=== PATIENT | male | born 1960 | race Asian ===

== ENCOUNTER 2020-02-07 19:51 | Emergency (ER) | payer BC ==
[~2020-02-07] VITALS: Ht 170.2 cm; Wt 70.5 kg
[2020-02-07 20:22] LABS: CLARITY,URINE CLEAR (Clear); COLOR,URINE YELLOW (Yellow); GLUCOSE, URINE 100 mg/dl (Neg); KETONES,URINE NEGATIVE (Neg); LEUKOCYTE ESTERASE ,URINE NEGATIVE (Neg); NITRITES, URINE NEGATIVE (Neg); OCCULT BLOOD,URINE NEGATIVE (Neg); PH,URINE 6.5 (4.8-8.0); PROTEIN,URINE 30 mg/dl (Neg)
[2020-02-07 20:28] LABS: UA COLLECTION TYPE CLN CATCH MIDSTREAM
[2020-02-07 20:29] LABS: BACTERIA,URINE NONE SEEN /HPF (Neg); RBC,URINE NONE SEEN /HPF (0-2); SQUAMOUS EPITHELIAL CELL,UR FEW /LPF (FEW); WBC,URINE 0-4 /HPF (0-4)
[2020-02-07 20:30] LABS: BASOPHILS % (AUTO) 0.5 % (0-1); EOSINOPHILS # (AUTO) 0.3 X10'3 (0-0.9); EOSINOPHILS % (AUTO) 4.1 % (0-6); HEMATOCRIT 34.6 % (42.0-52.0); HEMOGLOBIN 11.4 g/dl (14.0-17.9); LYMPHOCYTES # (AUTO) 1.3 X10'3 (1.1-4.8); MEAN CORPUSCULAR HEMOGLOBIN 30.4 PG (27.0-31.0); MEAN CORPUSCULAR HGB CONC 33.1 g/dL (33.0-36.5); MEAN PLATELET VOLUME 6.8 FL (7.4-10.4); MONOCYTES # (AUTO) 0.6 X10'3 (0-0.9); MONOCYTES % (AUTO) 7.5 % (2-12); NEUTROPHILS # (AUTO) 5.6 X10'3 (1.8-7.7); NEUTROPHILS % (AUTO) 71.9 % (42-75); PLATELET COUNT 281 X10'3 (140-440); RED BLOOD COUNT 3.76 X10'6 (4.70-6.10); RED CELL DISTRIBUTION WIDTH 13.3 % (11.5-14.5); WHITE BLOOD COUNT 7.9 X10'3 (4.5-11.0)
[2020-02-07 20:53] LABS: ALANINE AMINOTRANSFERASE 22 U/L (12-78); ALBUMIN 3.7 G/DL (3.4-5.0); ALBUMIN/GLOBULIN RATIO 1.1 (1.1-1.5); ALKALINE PHOSPHATASE 51 IU/L (46-116); ANION GAP 7 (8-16); ASPARTATE AMINO TRANSFERASE 15 U/L (10-37); BILIRUBIN,TOTAL 0.3 MG/DL (0.1-1.0); BLOOD UREA NITROGEN 14 MG/DL (7-18); BUN/CREATININE RATIO 12.1 (5.4-32.0); CALCIUM 8.6 MG/DL (8.5-10.1); CHLORIDE 107 MMOL/L (99-107); CREATININE 1.16 MG/DL (0.60-1.10); GLUCOSE 119 MG/DL (70-104); LIPASE 85 U/L (73-393); POTASSIUM 3.7 MMOL/L (3.5-5.1); SODIUM 143 MMOL/L (135-145); TOTAL CARBON DIOXIDE 29.5 MMOL/L (24-32); TOTAL PROTEIN 7.1 G/DL (6.4-8.2); eGFR 64 ML/MIN
[2020-02-07] MEDS ORDERED: POLY17PO10 PO (21:16)
[2020-02-07] MEDS ORDERED: DOCU100C40 PO (21:19)
[2020-02-07 21:56] VITALS: BP 139/81
== END 2020-02-07 21:58 | disposition home or self-care (01) ==
LOC: ER 19:52
DX: K59.00 Constipation, unspecified (principal); R10.32 Left lower quadrant pain; M54.9 Dorsalgia, unspecified; R30.9 Painful micturition, unspecified; E11.9 Type 2 diabetes mellitus without complications; Z79.899 Other long term (current) drug therapy
CPT/HCPCS: 36415; 74176; 80053; 81001; 83690; 85025; 99284

== ENCOUNTER 2020-03-18 10:30 | Inpatient (IN) | payer BC ==
[2020-03-12 11:30] LABS: BASOPHILS # (AUTO) 0.1 X10'3 (0-0.2); BASOPHILS % (AUTO) 0.9 % (0-1); EOSINOPHILS # (AUTO) 0.2 X10'3 (0-0.9); EOSINOPHILS % (AUTO) 2.9 % (0-6); LYMPHOCYTES # (AUTO) 1.4 X10'3 (1.1-4.8); LYMPHOCYTES % (AUTO) 23.9 % (21-51); MEAN CORPUSCULAR HEMOGLOBIN 29.7 PG (27.0-31.0); MEAN CORPUSCULAR HGB CONC 32.7 g/dL (33.0-36.5); MEAN CORPUSCULAR VOLUME 90.8 FL (78-98); MEAN PLATELET VOLUME 7.1 FL (7.4-10.4); MONOCYTES # (AUTO) 0.5 X10'3 (0-0.9); MONOCYTES % (AUTO) 8.4 % (2-12); NEUTROPHILS # (AUTO) 3.7 X10'3 (1.8-7.7); NEUTROPHILS % (AUTO) 63.9 % (42-75); PRE OP HEMATOCRIT 35.4 % (42.0-52.0); PRE OP HEMOGLOBIN 11.6 g/dL (14.0-17.9); PRE OP PLATELET COUNT 300 X10'3 (140-440); RED BLOOD COUNT 3.89 X10'6 (4.70-6.10); RED CELL DISTRIBUTION WIDTH 13.3 % (11.5-14.5)
[2020-03-12 11:41] LABS: PRE OP INR 0.9 INR; PRE OP PROTIME 9.8 SECONDS (9.0-12.0)
[2020-03-12 11:43] LABS: ALBUMIN 3.6 G/DL (3.4-5.0); ALBUMIN/GLOBULIN RATIO 0.9 (1.1-1.5); ALKALINE PHOSPHATASE 50 IU/L (46-116); BLOOD UREA NITROGEN 18 MG/DL (7-18); BUN/CREATININE RATIO 17.6 (5.4-32.0); CALCIUM 8.4 MG/DL (8.5-10.1); CHLORIDE 107 MMOL/L (99-107); CREATININE 1.02 MG/DL (0.60-1.10); PRE OP ALT 21 U/L (30-65); PRE OP ANION GAP 5 (8-16); PRE OP AST 14 U/L (10-37); PRE OP BILIRUB, TOTAL 0.3 MG/DL (0.0-1.0); PRE OP GLUCOSE 142 MG/DL (70-104); PRE OP POTASSIUM 3.7 MMOL/L (3.4-5.1); PRE OP SODIUM 142 MMOL/L (135-145); TOTAL PROTEIN 7.4 G/DL (6.4-8.2); eGFR 74 ML/MIN
[2020-03-12 11:45] LABS: HEMOGLOBIN A1C 6.4 % (4.5-6.2)
[2020-03-18] VITALS (17 sets, daily range): BP systolic 114–155; BP diastolic 72–91
[~2020-03-18] VITALS: Ht 170.2 cm; Wt 68.0 kg
[~2020-03-18 10:30] MED LIST: AMLO10TA13 PO; ASPI-612 PO; LISI40TA4 PO; MAGN400C PO; METF-438 PO; MULT-227 PO; OMEG-133 PO; PIOG15TA70 PO; POLY17PO10 PO; SIMV10TA98 PO; cefoxitin sod inj 2,000 MG in normal saline 100ml IV soln 100 ML IV ONE; cefoxitin sod inj 2,000 MG in normal saline 100ml IV soln 100 ML IV SCH; famotidine 20mg tablet PO ONE; iohexol 300mg/ml 100ml inj. ONE
[2020-03-18] MEDS: ringers solution, lacted 1,000 ML IV SCH ×2 (11:33→21:34)
[2020-03-18] MEDS ORDERED: ringers solution, lacted 1,000 ML IV SCH (12:01)
[2020-03-18] MEDS ORDERED: morphine 2 MG/ML inj. syringe IV PRN (12:05)
[2020-03-18] MEDS ORDERED: ondansetron/PF 4mg/2ml inj IV PRN (12:05)
[2020-03-18] MEDS ORDERED: proCHLORperazine 10 MG/2 ml inj IV PRN (12:05)
[2020-03-18] MEDS ORDERED: morphine 4 MG/ML inj SYRINge IV PRN (12:05)
[2020-03-18] MEDS ORDERED: meperidine/PF 25mg/ml syringe IV PRN ×3 (12:05)
[2020-03-18] MEDS ORDERED: BUPIVAcaine/PF 2.5 mg/ml (0.25%) 30ml vial ONE (12:55)
[2020-03-18] MEDS ORDERED: LIDOcaine 1% 30ml preserv. free vial ONE (12:55)
[2020-03-18] MEDS ORDERED: neostigmine methylsulfate 1 MG/ML 10ml vial ONE (14:22)
[2020-03-18] MEDS ORDERED: sevoflurane 250ml liquid IH ONE (14:22)
[2020-03-18] MEDS ORDERED: glycopyrrolate 0.2mg/ml inj ONE (14:22)
[2020-03-18] MEDS ORDERED: fentaNYL /PF 50mcg/ml 5ml ampule ONE (14:25)
[2020-03-18] MEDS ORDERED: midazolam 2 mg/2 ml injection ONE (14:25)
[2020-03-18] MEDS ORDERED: INDOCYANINE GREEN 25 MG/10 ML VIAL IV ONE ×2 (17:17→17:18)
[2020-03-18] MEDS ORDERED: rocuronium 10mg/ml inj IV ONE (17:44)
[2020-03-18] MEDS ORDERED: ondansetron/PF 4mg/2ml inj ONE (17:44)
[2020-03-18] MEDS ORDERED: meperidine/PF 25mg/ml syringe ONE (17:53)
[2020-03-18] MEDS ORDERED: propofol inj 20 ML IV ONE (17:55)
[2020-03-18] MEDS ORDERED: LIDOcaine 2% (20mg/ml) 5ml vial ONE (17:55)
[2020-03-18] MEDS ORDERED: acetaminophen 1,000mg/100ml IV 100 ML IV ONE ×2 (18:12→18:30)
[2020-03-18] MEDS ORDERED: Potassium Cl inj 20 MEQ in ringers solution, lacted 1,000 ML IV SCH (18:29)
[2020-03-18] MEDS ORDERED: naloxone 0.4 mg/ml inj IV PRN (18:30)
[2020-03-18] MEDS ORDERED: CADD PCA waste documentation MC PRN (18:30)
--- NOTE | 2020-03-18 18:32 | NUR ---
RECEIVED FROM OR VIA BED ACCOMPANIED BY ANESTHESIOLOGIST DR BLOUNT, REPORT GIVEN. PT DROWSY BUT AWAKENS WITH NO COMPLAINT OF PAIN AT THIS TIME. 20 GAUGE PIV L WRIST PATENT AND RUNNING LR AT 100 ML/HR. LG BANDAID X4 AND SMALL ISLAND DRESSING ABD CDI. SKIN PINK AND WARM, VSS, ABD SOFT, GOOD CAP REFILL, RESTING COMFORTABLY.
[2020-03-18] MEDS: HYDROmorphone/NS 1 mg/ml CADD 50 ML IV SCH ×3 (19:23→23:00)
--- NOTE | 2020-03-18 19:42 | NUR ---
TRANSPORTED VIA BED ACCOMPANIED BY MYSELF, REPORT GIVEN. PT DROWSY BUT AWAKENS WITH NO COMPLAINT OF PAIN AT THIS TIME. 20 GAUGE PIV L WRIST PATENT AND RUNNING LR AT 100 ML/HR. LG BANDAID X4 AND SMALL ISLAND DRESSING ABD CDI. SKIN PINK AND WARM, VSS, ABD SOFT, GOOD CAP REFILL, RESTING COMFORTABLY. LEFT IN CARE OF SURGICAL NURSE
--- NOTE | 2020-03-18 19:45 | NUR ---
Patient in room [facility] 348. I have received report from ZAK Trinidad and had the opportunity to ask questions and assume patient care.
--- NOTE | 2020-03-18 20:00 | NUR ---
Pt arrived to floor. VSS; no c/o pain except at catheter insertion site. Manipulated FC to ensure no kinks and flowing freely. Added leg strap to secure. Family notified of pt arrival. Sensation intact. Lap sites CDI, some shadowing at midline; outlined. Skin check completed. Pt A&O.
--- NOTE | 2020-03-18 21:33 | NUR ---
Spoke with Margie in the Pharmacy who verified the acetamenophen IV had been administered in the OR. Non-admined medication.
[2020-03-18] MEDS: Potassium Cl inj 20 MEQ in ringers solution, lacted 1,000 ML IV SCH (21:40)
[2020-03-19] VITALS (7 sets, daily range): BP systolic 123–150; BP diastolic 64–97
[2020-03-19] MEDS: ceFOXitin 1 GM/D5W 50mL IVPB 50 ML IV SCH ×2 (00:06→07:34)
[2020-03-19] MEDS: HYDROmorphone/NS 1 mg/ml CADD 50 ML IV SCH ×12 (01:00→23:00)
[2020-03-19] MEDS: Potassium Cl inj 20 MEQ in ringers solution, lacted 1,000 ML IV SCH ×3 (04:20→14:00)
[2020-03-19] MEDS: ondansetron/PF 4mg/2ml inj IV PRN ×2 (04:36→17:27)
[2020-03-19 05:28] LABS: BASOPHILS % (AUTO) 0.3 % (0-1); EOSINOPHILS % (AUTO) 0 % (0-6); HEMATOCRIT 37.6 % (42.0-52.0); HEMOGLOBIN 12.6 g/dl (14.0-17.9); LYMPHOCYTES # (AUTO) 1.2 X10'3 (1.1-4.8); LYMPHOCYTES % (AUTO) 11.3 % (21-51); MEAN CORPUSCULAR HEMOGLOBIN 30.2 PG (27.0-31.0); MEAN CORPUSCULAR HGB CONC 33.5 g/dL (33.0-36.5); MEAN CORPUSCULAR VOLUME 90.2 FL (78-98); MEAN PLATELET VOLUME 7.1 FL (7.4-10.4); MONOCYTES # (AUTO) 0.7 X10'3 (0-0.9); MONOCYTES % (AUTO) 6.2 % (2-12); NEUTROPHILS # (AUTO) 8.8 X10'3 (1.8-7.7); NEUTROPHILS % (AUTO) 82.2 % (42-75); PLATELET COUNT 280 X10'3 (140-440); RED BLOOD COUNT 4.17 X10'6 (4.70-6.10); RED CELL DISTRIBUTION WIDTH 13.2 % (11.5-14.5); WHITE BLOOD COUNT 10.7 X10'3 (4.5-11.0)
[2020-03-19 05:34] LABS: ALBUMIN 3.3 G/DL (3.4-5.0); ANION GAP 9 (8-16); CHLORIDE 103 MMOL/L (99-107); CREATININE 1.05 MG/DL (0.60-1.10); GLUCOSE 125 MG/DL (70-104); POTASSIUM 3.9 MMOL/L (3.5-5.1); SODIUM 138 MMOL/L (135-145); TOTAL CARBON DIOXIDE 25.7 MMOL/L (24-32); eGFR 72 ML/MIN
[2020-03-19 05:58] LABS: BLOOD UREA NITROGEN 6 MG/DL (7-18); BUN/CREATININE RATIO 5.7 (5.4-32.0)
--- NOTE | 2020-03-19 06:30 | NUR ---
Patient in room MARY 348. I have received report from Margie Eaton RN and had the opportunity to ask questions and assume patient care.
--- NOTE | 2020-03-19 06:40 | NUR ---
Problems reprioritized. Patient report given, questions answered & plan of care reviewed with ZAK Hough.
[2020-03-19] MEDS: lisinopril 20mg tablet PO SCH (07:35)
[2020-03-19] MEDS: enoxaparin 40mg/0.4ml syringe SQ SCH (07:35)
[2020-03-19] MEDS: amLODIPine 5mg tablet PO SCH (07:36)
[2020-03-19] MEDS: aspirin 81mg tablet.DR PO SCH (07:36)
[2020-03-19] MEDS ORDERED: aspirin 81mg tablet.DR PO ONE (07:55)
--- NOTE | 2020-03-19 07:55 | NUR ---
pt's aspirin fell on the floor, phoned Pharmacy. another pulled from [facility] and given to pt.
--- NOTE | 2020-03-19 07:56 | NUR ---
Enoxaparin info given and discussed with pt. Pt verbalized understanding.
--- NOTE | 2020-03-19 08:00 | NUR ---
pt with emesis after eating clear liquid diet. approx 100cc. insurance examiner notified. Will continue to monitor.
--- NOTE | 2020-03-19 17:00 | NUR ---
Pt has ambulated 2x this shift, a.m. and afternoon, 300ft with standby assist, tolerated well.
[2020-03-19] MEDS: ketorolac tromethamine 15mg/ml inj. IV SCH (17:42)
--- NOTE | 2020-03-19 18:38 | NUR ---
Patient in room [facility] 348. I have received report from ZAK Hough and had the opportunity to ask questions and assume patient care.
--- NOTE | 2020-03-19 18:40 | NUR ---
Problems reprioritized. Patient report given, questions answered & plan of care reviewed with Margie Eaton RN.
[2020-03-19] MEDS ORDERED: dextrose 50%-water 50ml dispensing syringe IV PRN ×2 (19:15)
[2020-03-19] MEDS ORDERED: glucagon, human recombinant 1mg kit SUBCUT PRN (19:15)
[2020-03-19] MEDS ORDERED: proCHLORperazine 10 MG/2 ml inj IV ONE (19:15)
[2020-03-19] MEDS ORDERED: dextrose ORAL solution 15 GM/59 ML bottle PO PRN ×2 (19:15)
[2020-03-19] MEDS ORDERED: insulin Lispro (HumaLOG) vial - multi-dose SQ SCH (19:15)
[2020-03-19] MEDS ORDERED: MESSAGE TO PHARMACY PO ONE (19:15)
[2020-03-19] MEDS: insulin glargine (Lantus) pen - multi-dose SQ SCH (21:00)
--- NOTE | 2020-03-19 21:45 | NUR ---
Pt met hyperglycemic protocol with a blood glucose of 228. Patient does not feel good about insulin when he has been made NPO. Will not begin insulin at this time and will reassess for further needs.
[2020-03-20] MEDS: ketorolac tromethamine 15mg/ml inj. IV SCH ×3 (00:44→15:58)
[2020-03-20] MEDS: HYDROmorphone/NS 1 mg/ml CADD 50 ML IV SCH ×5 (00:46→09:00)
[2020-03-20 05:40] LABS: BASOPHILS % (AUTO) 0.3 % (0-1); EOSINOPHILS # (AUTO) 0.1 X10'3 (0-0.9); EOSINOPHILS % (AUTO) 1.6 % (0-6); HEMATOCRIT 31.5 % (42.0-52.0); HEMOGLOBIN 10.6 g/dl (14.0-17.9); LYMPHOCYTES # (AUTO) 0.9 X10'3 (1.1-4.8); LYMPHOCYTES % (AUTO) 12.6 % (21-51); MEAN CORPUSCULAR HEMOGLOBIN 30.2 PG (27.0-31.0); MEAN CORPUSCULAR HGB CONC 33.6 g/dL (33.0-36.5); MEAN CORPUSCULAR VOLUME 89.9 FL (78-98); MEAN PLATELET VOLUME 7.3 FL (7.4-10.4); MONOCYTES # (AUTO) 0.8 X10'3 (0-0.9); MONOCYTES % (AUTO) 10.8 % (2-12); NEUTROPHILS # (AUTO) 5.5 X10'3 (1.8-7.7); NEUTROPHILS % (AUTO) 74.7 % (42-75); PLATELET COUNT 246 X10'3 (140-440); RED CELL DISTRIBUTION WIDTH 13.4 % (11.5-14.5); WHITE BLOOD COUNT 7.4 X10'3 (4.5-11.0)
--- NOTE | 2020-03-20 06:00 | NUR ---
Problems reprioritized. Patient report given, questions answered & plan of care reviewed with Margie Eaton RN.
[2020-03-20 06:02] LABS: ALBUMIN 2.6 G/DL (3.4-5.0); ANION GAP 5 (8-16); BLOOD UREA NITROGEN 7 MG/DL (7-18); BUN/CREATININE RATIO 7.3 (5.4-32.0); CALCIUM 7.6 MG/DL (8.5-10.1); CHLORIDE 105 MMOL/L (99-107); CREATININE 0.96 MG/DL (0.60-1.10); GLUCOSE 124 MG/DL (70-104); POTASSIUM 3.7 MMOL/L (3.5-5.1); SODIUM 139 MMOL/L (135-145); TOTAL CARBON DIOXIDE 29.2 MMOL/L (24-32); eGFR 80 ML/MIN
--- NOTE | 2020-03-20 06:23 | NUR ---
Problems reprioritized. Patient report given, questions answered & plan of care reviewed with ZAK Chaparro.
[2020-03-20 07:00] VITALS: BP 129/68
[2020-03-20] MEDS: lisinopril 20mg tablet PO SCH (08:52)
[2020-03-20] MEDS: amLODIPine 5mg tablet PO SCH (08:52)
[2020-03-20] MEDS: aspirin 81mg tablet.DR PO SCH (08:52)
[2020-03-20] MEDS: enoxaparin 40mg/0.4ml syringe SQ SCH (08:53)
--- NOTE | 2020-03-20 09:48 | NUR ---
Dr Mcmillan called in requesting me to put orders in to DC patients CADD, order Tylenol 650mg PO Q4H scheduled, continue Toradol, Saline lock patient, Dressings Open to air, Patient ok to shower. Orders placed in computer and primary RN Shankar alexis.
[2020-03-20 11:00] VITALS: BP 126/71
--- NOTE | 2020-03-20 12:05 | NUR ---
DM consult: Pt with A1c of 6.4%, DM education not warranted at this time. Will continue to follow. Addendum: 03/20/20 at [address] Amended: Links added.
[2020-03-20] MEDS: acetaminophen 325mg tablet PO SCH ×3 (12:16→20:47)
--- NOTE | 2020-03-20 18:37 | NUR ---
Problems reprioritized. Patient report given, questions answered & plan of care reviewed with NEMO RN.
[2020-03-20 19:00] VITALS: BP 115/70
[2020-03-20] MEDS: insulin glargine (Lantus) pen - multi-dose SQ SCH (22:54)
[2020-03-21] VITALS: BP 129/70
[2020-03-21] MEDS: acetaminophen 325mg tablet PO SCH ×6 (00:22→19:54)
[2020-03-21] MEDS: ketorolac tromethamine 15mg/ml inj. IV SCH ×2 (00:22→07:45)
[2020-03-21 06:06] LABS: BASOPHILS % (AUTO) 0.5 % (0-1); EOSINOPHILS # (AUTO) 0.3 X10'3 (0-0.9); EOSINOPHILS % (AUTO) 5.1 % (0-6); HEMATOCRIT 33.5 % (42.0-52.0); LYMPHOCYTES # (AUTO) 0.9 X10'3 (1.1-4.8); LYMPHOCYTES % (AUTO) 14.3 % (21-51); MEAN CORPUSCULAR HEMOGLOBIN 29.7 PG (27.0-31.0); MEAN CORPUSCULAR VOLUME 90.1 FL (78-98); MEAN PLATELET VOLUME 7.5 FL (7.4-10.4); MONOCYTES # (AUTO) 0.7 X10'3 (0-0.9); MONOCYTES % (AUTO) 10.6 % (2-12); NEUTROPHILS # (AUTO) 4.4 X10'3 (1.8-7.7); NEUTROPHILS % (AUTO) 69.5 % (42-75); PLATELET COUNT 256 X10'3 (140-440); RED BLOOD COUNT 3.72 X10'6 (4.70-6.10); RED CELL DISTRIBUTION WIDTH 13.3 % (11.5-14.5); WHITE BLOOD COUNT 6.3 X10'3 (4.5-11.0)
[2020-03-21 06:36] LABS: ALBUMIN 2.7 G/DL (3.4-5.0); ANION GAP 3 (8-16); BLOOD UREA NITROGEN 4 MG/DL (7-18); BUN/CREATININE RATIO 3.4 (5.4-32.0); CALCIUM 8.1 MG/DL (8.5-10.1); CHLORIDE 108 MMOL/L (99-107); CREATININE 1.19 MG/DL (0.60-1.10); GLUCOSE 126 MG/DL (70-104); POTASSIUM 4.5 MMOL/L (3.5-5.1); SODIUM 142 MMOL/L (135-145); TOTAL CARBON DIOXIDE 30.6 MMOL/L (24-32); eGFR 62 ML/MIN
--- NOTE | 2020-03-21 06:36 | NUR ---
Patient in room M[facility] 348. I have received report from ZAK Long and had the opportunity to ask questions and assume patient care.
[2020-03-21 07:00] VITALS: BP 155/77
[2020-03-21] MEDS: amLODIPine 5mg tablet PO SCH (07:46)
[2020-03-21] MEDS: lisinopril 20mg tablet PO SCH (07:49)
[2020-03-21] MEDS: aspirin 81mg tablet.DR PO SCH (07:49)
[2020-03-21] MEDS: enoxaparin 40mg/0.4ml syringe SQ SCH (07:53)
[2020-03-21 11:32] VITALS: BP 135/74
[2020-03-21] MEDS: ondansetron/PF 4mg/2ml inj IV PRN (12:28)
[2020-03-21 18:00] VITALS: BP 140/80
--- NOTE | 2020-03-21 18:27 | NUR ---
Problems reprioritized. Patient report given, questions answered & plan of care reviewed with ZAK Mccoy. Pt tolerating full liquid diet well. c/o nausea PRN Zofran given x1. No episodes of emesis. Plan to D/C home tomorrow.
[2020-03-21] MEDS: insulin glargine (Lantus) pen - multi-dose SQ SCH (21:00)
[2020-03-22] MEDS: acetaminophen 325mg tablet PO SCH ×3 (00:02→07:42)
[2020-03-22 00:46] VITALS: BP 137/78
[2020-03-22 05:31] LABS: ALBUMIN 2.6 G/DL (3.4-5.0); ANION GAP 3 (8-16); BLOOD UREA NITROGEN 6 MG/DL (7-18); BUN/CREATININE RATIO 5.1 (5.4-32.0); CALCIUM 8.4 MG/DL (8.5-10.1); CHLORIDE 105 MMOL/L (99-107); CREATININE 1.18 MG/DL (0.60-1.10); GLUCOSE 128 MG/DL (70-104); POTASSIUM 3.6 MMOL/L (3.5-5.1); SODIUM 140 MMOL/L (135-145); TOTAL CARBON DIOXIDE 31.6 MMOL/L (24-32); eGFR 63 ML/MIN
[2020-03-22 06:23] LABS: BASOPHILS % (AUTO) 0.6 % (0-1); EOSINOPHILS # (AUTO) 0.4 X10'3 (0-0.9); EOSINOPHILS % (AUTO) 7.8 % (0-6); HEMATOCRIT 33.3 % (42.0-52.0); LYMPHOCYTES % (AUTO) 20.4 % (21-51); MEAN CORPUSCULAR HEMOGLOBIN 29.9 PG (27.0-31.0); MEAN CORPUSCULAR HGB CONC 33.1 g/dL (33.0-36.5); MEAN CORPUSCULAR VOLUME 90.3 FL (78-98); MEAN PLATELET VOLUME 7.2 FL (7.4-10.4); MONOCYTES # (AUTO) 0.5 X10'3 (0-0.9); MONOCYTES % (AUTO) 9.5 % (2-12); NEUTROPHILS # (AUTO) 3.1 X10'3 (1.8-7.7); NEUTROPHILS % (AUTO) 61.7 % (42-75); PLATELET COUNT 285 X10'3 (140-440); RED BLOOD COUNT 3.68 X10'6 (4.70-6.10); RED CELL DISTRIBUTION WIDTH 13.7 % (11.5-14.5)
--- NOTE | 2020-03-22 06:28 | NUR ---
Problems reprioritized. Patient report given, questions answered & plan of care reviewed with ZAK Palencia.
--- NOTE | 2020-03-22 06:39 | NUR ---
Patient in room M[facility] 348. I have received report from ZAK Mccoy and had the opportunity to ask questions and assume patient care.
[2020-03-22 07:00] VITALS: BP 138/78
[2020-03-22 07:42] VITALS: BP_SYST 138
[2020-03-22] MEDS: amLODIPine 5mg tablet PO SCH (07:42)
[2020-03-22] MEDS: aspirin 81mg tablet.DR PO SCH (07:42)
[2020-03-22] MEDS: lisinopril 20mg tablet PO SCH (07:42)
[2020-03-22] MEDS: enoxaparin 40mg/0.4ml syringe SQ SCH (07:42)
--- NOTE | 2020-03-22 10:07 | NUR ---
Pt discharged per nursing. Discharge instructions and medications reviewed. No new prescriptions ordered. Pt instructed to follow up with Dr Mcmillan on March 28, phone number provided. IV DC'd, cannula intact. Pt instructed to notify nursing when ride has arrived and he is ready to be escorted to front lobby.
--- NOTE | 2020-03-22 10:29 | NUR ---
Patient stated his ride was downstairs. Patient was discharged via family and taken from unit via wheelchair with x1 staff. Patient alert, oriented and in no apparent distress at time of discharge. All belongings left with patient.
== END 2020-03-22 10:24 | disposition home or self-care (01) | DRG 333 ==
LOC: PAS 10:30 → EDSTATUS 13:00 → SUR 3N 18:35
PROVIDERS: ADMIT Surgery; ATTEND Surgery
PROC: 8E0Y4CZ Robotic Assisted Procedure of Lower Extremity, Percutaneous Endoscopic Approach (ICD-10-PCS; 2020-03-18)
PROC: 0DBP4ZZ Excision of Rectum, Percutaneous Endoscopic Approach (ICD-10-PCS; principal; 2020-03-18 14:22)
DX: C19 Malignant neoplasm of rectosigmoid junction (principal); C78.7 Secondary malignant neoplasm of liver and intrahepatic bile duct; Z03.818 Encounter for observation for suspected exposure to other biological agents ruled out
CPT/HCPCS: Z7506; Z7508; 36415; 71046; 80048; 80053; 82948; 83036; 85025; 85610; 85730; 87081; 93005; A4215; A4618; C1758; G0378; J0131; J0694; J0780; J1170; J1650; J1815; J1885; J2001; J2175; J2250; J2405; J2704; J2710; J3010; J3480; J3490; J7120; Q9967

== ENCOUNTER 2020-08-08 20:48 | Emergency (ER) | payer BC, SELFPAY ==
[~2020-08-08] VITALS: Ht 170.2 cm; Wt 63.6 kg
[~2020-08-08 20:48] MED LIST changes: -cefoxitin sod inj 2,000 MG in normal saline 100ml IV soln 100 ML IV ONE; -cefoxitin sod inj 2,000 MG in normal saline 100ml IV soln 100 ML IV SCH; -famotidine 20mg tablet PO ONE; -iohexol 300mg/ml 100ml inj. ONE
[2020-08-08] MEDS ORDERED: normal saline 1000ML IV soln IV ONE (21:10)
[2020-08-08 22:12] LABS: BASOPHILS % (AUTO) 0.2 % (0-1); EOSINOPHILS % (AUTO) 0.5 % (0-6); HEMATOCRIT 29.5 % (42.0-52.0); HEMOGLOBIN 9.8 g/dl (14.0-17.9); LYMPHOCYTES # (AUTO) 0.8 X10'3 (1.1-4.8); LYMPHOCYTES % (AUTO) 9.4 % (21-51); MEAN CORPUSCULAR HEMOGLOBIN 29.6 PG (27.0-31.0); MEAN CORPUSCULAR HGB CONC 33.2 g/dL (33.0-36.5); MEAN CORPUSCULAR VOLUME 89.2 FL (78-98); MEAN PLATELET VOLUME 7.4 FL (7.4-10.4); MONOCYTES # (AUTO) 0.5 X10'3 (0-0.9); MONOCYTES % (AUTO) 6.1 % (2-12); NEUTROPHILS # (AUTO) 7.2 X10'3 (1.8-7.7); NEUTROPHILS % (AUTO) 83.8 % (42-75); PLATELET COUNT 259 X10'3 (140-440); RED BLOOD COUNT 3.31 X10'6 (4.70-6.10); RED CELL DISTRIBUTION WIDTH 17.9 % (11.5-14.5); WHITE BLOOD COUNT 8.6 X10'3 (4.5-11.0)
[2020-08-08 22:20] LABS: ALANINE AMINOTRANSFERASE 52 U/L (12-78); ALBUMIN 2.6 G/DL (3.4-5.0); ALBUMIN/GLOBULIN RATIO 0.6 (1.1-1.5); ALKALINE PHOSPHATASE 209 IU/L (46-116); ANION GAP 11 (8-16); ASPARTATE AMINO TRANSFERASE 46 U/L (10-37); BILIRUBIN,TOTAL 0.6 MG/DL (0.1-1.0); BLOOD UREA NITROGEN 17 MG/DL (7-18); BUN/CREATININE RATIO 17.5 (5.4-32.0); CALCIUM 8.1 MG/DL (8.5-10.1); CHLORIDE 101 MMOL/L (99-107); CREATININE 0.97 MG/DL (0.60-1.10); GLUCOSE 206 MG/DL (70-104); POTASSIUM 4.2 MMOL/L (3.5-5.1); SODIUM 135 MMOL/L (135-145); TOTAL CARBON DIOXIDE 22.6 MMOL/L (24-32); TOTAL PROTEIN 6.9 G/DL (6.4-8.2); eGFR 79 ML/MIN
[2020-08-08 22:33] LABS: CLARITY,URINE SLIGHTLY CLOUDY (Clear); COLOR,URINE YELLOW (Yellow); GLUCOSE, URINE >=1000 mg/dl (Neg); KETONES,URINE 15 mg/dl (Neg); LEUKOCYTE ESTERASE ,URINE NEGATIVE (Neg); NITRITES, URINE NEGATIVE (Neg); OCCULT BLOOD,URINE SMALL (Neg); PROTEIN,URINE 100 mg/dl (Neg); UROBILINOGEN,URINE 0.2 E.U/dL (0.2-1.0)
[2020-08-08 22:35] LABS: FERRITIN 345 NG/ML (26-388); LACTATE DEHYDROGENASE 340 U/L (85-227); MAGNESIUM 1.4 MG/DL (1.5-2.4)
[2020-08-08 22:39] LABS: UA COLLECTION TYPE CLN CATCH MIDSTREAM
[2020-08-08 22:40] LABS: BACTERIA,URINE FEW /HPF (Neg); RBC,URINE 0-2 /HPF (0-2); SQUAMOUS EPITHELIAL CELL,UR FEW /LPF (FEW); WBC,URINE 0-4 /HPF (0-4)
[2020-08-08] MEDS ORDERED: oseltamivir phos 75mg capsule PO ONE (23:20)
[2020-08-09] MEDS ORDERED: vancomycin/NS 1 GM ADD-VANTAGE 250 ML IV ONE (00:45)
[2020-08-09] MEDS ORDERED: amox tr/potassium clavulanate 875/125mg TAB PO ONE (00:45)
[2020-08-09 01:55] VITALS: BP 153/87
[2020-08-09] MEDS ORDERED: AMOX-580 PO (02:18)
[2020-08-09] MEDS ORDERED: TAM75C PO (02:18)
[2020-08-09] MEDS ORDERED: heparin sodium, porcine/PF 100unit/ml 5ML syringe IV SCH ×2 (02:50→08:00)
== END 2020-08-09 03:19 | disposition home or self-care (01) ==
LOC: ER 20:51
DX: C18.9 Malignant neoplasm of colon, unspecified (principal); E11.65 Type 2 diabetes mellitus with hyperglycemia; R50.9 Fever, unspecified; R43.8 Other disturbances of smell and taste; J10.1 Influenza due to other identified influenza virus with other respiratory manifestations; Z20.828 Contact with and (suspected) exposure to other viral communicable diseases; Z79.2 Long term (current) use of antibiotics; Z79.82 Long term (current) use of aspirin; Z79.899 Other long term (current) drug therapy
CPT/HCPCS: 36415; 71045; 80053; 81001; 82728; 83605; 83615; 83735; 84145; 84443; 85025; 85384; 86140; 87040; 87502; 87503; 87635; 93005; 96361; 96365; 96366; 99285; C9803; J1642; J3370; J7030

== ENCOUNTER 2020-10-16 04:09 | Emergency (ER) | payer BC, SELFPAY ==
[~2020-10-16] VITALS: Ht 170.2 cm; Wt 60.0 kg
[2020-10-16] MEDS ORDERED: proCHLORperazine 10 MG/2 ml inj IV ONE (04:30)
[2020-10-16] MEDS ORDERED: morphine 4 MG/ML inj SYRINge IV ONE (04:30)
[2020-10-16] MEDS ORDERED: ondansetron/PF 4mg/2ml inj IV ONE (04:30)
[2020-10-16] MEDS ORDERED: normal saline 1000ml 1,000 ML IV ONE ×2 (04:30→06:00)
[2020-10-16 04:56] LABS: BASOPHILS # (AUTO) 0.1 X10'3 (0-0.2); BASOPHILS % (AUTO) 0.3 % (0-1); EOSINOPHILS % (AUTO) 0.1 % (0-6); HEMATOCRIT 29.2 % (42.0-52.0); HEMOGLOBIN 9.2 g/dl (14.0-17.9); LYMPHOCYTES # (AUTO) 1.5 X10'3 (1.1-4.8); LYMPHOCYTES % (AUTO) 6.5 % (21-51); MEAN CORPUSCULAR HEMOGLOBIN 28.5 PG (27.0-31.0); MEAN CORPUSCULAR HGB CONC 31.4 g/dL (33.0-36.5); MEAN CORPUSCULAR VOLUME 90.7 FL (78-98); MEAN PLATELET VOLUME 8.1 FL (7.4-10.4); MONOCYTES # (AUTO) 1.1 X10'3 (0-0.9); MONOCYTES % (AUTO) 4.7 % (2-12); NEUTROPHILS # (AUTO) 20.3 X10'3 (1.8-7.7); NEUTROPHILS % (AUTO) 88.4 % (42-75); PLATELET COUNT 294 X10'3 (140-440); RED BLOOD COUNT 3.22 X10'6 (4.70-6.10); RED CELL DISTRIBUTION WIDTH 22.4 % (11.5-14.5)
[2020-10-16 05:09] LABS: ALANINE AMINOTRANSFERASE 42 U/L (12-78); ALBUMIN/GLOBULIN RATIO 0.8 (1.1-1.5); ALKALINE PHOSPHATASE 482 IU/L (46-116); ANION GAP 11 (8-16); ASPARTATE AMINO TRANSFERASE 68 U/L (10-37); BILIRUBIN,TOTAL 0.5 MG/DL (0.1-1.0); BLOOD UREA NITROGEN 20 MG/DL (7-18); BUN/CREATININE RATIO 20.8 (5.4-32.0); CALCIUM 8.5 MG/DL (8.5-10.1); CHLORIDE 104 MMOL/L (99-107); CREATININE 0.96 MG/DL (0.60-1.10); GLUCOSE 218 MG/DL (70-104); SODIUM 139 MMOL/L (135-145); TOTAL CARBON DIOXIDE 23.6 MMOL/L (24-32); TOTAL PROTEIN 6.9 G/DL (6.4-8.2); eGFR 80 ML/MIN
[2020-10-16 05:10] LABS: ANISOCYTOSIS 3+; PLATELET ESTIMATE NORMAL; TOTAL CELLS COUNTED 100
[2020-10-16 05:13] LABS: LIPASE 135 U/L (73-393); TROPONIN I < 0.04 NG/ML (0.0-0.05)
--- NOTE | 2020-10-16 05:47 | NUR ---
LACTIC 4.0. DR. ROBERTS AWARE
[2020-10-16 06:04] LABS: CLARITY,URINE SLIGHTLY CLOUDY (Clear); COLOR,URINE YELLOW (Yellow); GLUCOSE, URINE >=1000 mg/dl (Neg); KETONES,URINE NEGATIVE (Neg); LEUKOCYTE ESTERASE ,URINE NEGATIVE (Neg); NITRITES, URINE NEGATIVE (Neg); OCCULT BLOOD,URINE LARGE (Neg); PROTEIN,URINE 30 mg/dl (Neg); UROBILINOGEN,URINE 0.2 E.U/dL (0.2-1.0)
[2020-10-16 06:11] LABS: UA COLLECTION TYPE URINAL
[2020-10-16 06:13] LABS: SQUAMOUS EPITHELIAL CELL,UR FEW /LPF (FEW)
[2020-10-16 06:15] LABS: RBC,URINE 50-100 /HPF (0-2)
[2020-10-16 06:16] LABS: CAL OXALATE CRYSTALS 4+ /HPF (NEGATIVE)
[2020-10-16 06:18] LABS: WBC,URINE 0-4 /HPF (0-4)
[2020-10-16 06:20] LABS: BACTERIA,URINE NONE SEEN /HPF (Neg)
[2020-10-16 09:38] VITALS: BP 159/85
== END 2020-10-16 09:58 | disposition home or self-care (01) ==
LOC: ER 04:11
DX: R11.2 Nausea with vomiting, unspecified (principal); R10.84 Generalized abdominal pain; M54.5 Low back pain; E11.9 Type 2 diabetes mellitus without complications; Z85.038 Personal history of other malignant neoplasm of large intestine; Z79.82 Long term (current) use of aspirin; Z79.899 Other long term (current) drug therapy
CPT/HCPCS: 36415; 74176; 80053; 81001; 83605; 83690; 84145; 84484; 85007; 85025; 96361; 96374; 96375; 99284; J0780; J2270; J2405; J7030

== ENCOUNTER → 2020-11-07 | Emergency (ER) | payer BC ==
[~2020-11-07] VITALS: Ht 170.2 cm; Wt 69.1 kg
[~2020-11-07] MED LIST changes: +LISI40TA13 PO; -LISI40TA4 PO; +ONDA4TAB6 PO; +morphine 4 MG/ML inj SYRINge IV ONE; +normal saline 1000ml 1,000 ML IV ONE; +ondansetron/PF 4mg/2ml inj IV ONE
[2020-11-07 20:31] LABS: BASOPHILS % (AUTO) 0.9 % (0-1); EOSINOPHILS % (AUTO) 0.3 % (0-6); HEMATOCRIT 23.7 % (42.0-52.0); HEMOGLOBIN 7.7 g/dl (14.0-17.9); LYMPHOCYTES # (AUTO) 0.6 X10'3 (1.1-4.8); LYMPHOCYTES % (AUTO) 11.6 % (21-51); MEAN CORPUSCULAR HEMOGLOBIN 29.7 PG (27.0-31.0); MEAN CORPUSCULAR HGB CONC 32.4 g/dL (33.0-36.5); MEAN CORPUSCULAR VOLUME 91.6 FL (78-98); MONOCYTES # (AUTO) 0.9 X10'3 (0-0.9); NEUTROPHILS # (AUTO) 3.4 X10'3 (1.8-7.7); NEUTROPHILS % (AUTO) 69.2 % (42-75); PLATELET COUNT 109 X10'3 (140-440); RED BLOOD COUNT 2.59 X10'6 (4.70-6.10); RED CELL DISTRIBUTION WIDTH 21.4 % (11.5-14.5); WHITE BLOOD COUNT 4.9 X10'3 (4.5-11.0)
[2020-11-07 20:42] LABS: ALANINE AMINOTRANSFERASE 23 U/L (12-78); ALBUMIN 2.4 G/DL (3.4-5.0); ALBUMIN/GLOBULIN RATIO 0.5 (1.1-1.5); ALKALINE PHOSPHATASE 340 IU/L (46-116); ANION GAP 11 (8-16); ASPARTATE AMINO TRANSFERASE 20 U/L (10-37); BILIRUBIN,TOTAL 0.8 MG/DL (0.1-1.0); BLOOD UREA NITROGEN 27 MG/DL (7-18); BUN/CREATININE RATIO 28.1 (5.4-32.0); CALCIUM 8.6 MG/DL (8.5-10.1); CHLORIDE 97 MMOL/L (99-107); CREATININE 0.96 MG/DL (0.60-1.10); GLUCOSE 373 MG/DL (70-104); SODIUM 135 MMOL/L (135-145); TOTAL CARBON DIOXIDE 27.1 MMOL/L (24-32); eGFR 80 ML/MIN
[2020-11-07 20:53] LABS: CLARITY,URINE CLEAR (Clear); COLOR,URINE YELLOW (Yellow); GLUCOSE, URINE >=1000 mg/dl (Neg); KETONES,URINE NEGATIVE (Neg); LEUKOCYTE ESTERASE ,URINE NEGATIVE (Neg); NITRITES, URINE NEGATIVE (Neg); OCCULT BLOOD,URINE TRACE-INTACT (Neg); PROTEIN,URINE 30 mg/dl (Neg)
[2020-11-07 21:29] LABS: UA COLLECTION TYPE CLN CATCH MIDSTREAM
[2020-11-07 21:54] LABS: HYALINE CASTS 0-3 /LPF (NEGATIVE)
[2020-11-07 21:55] LABS: BACTERIA,URINE NONE SEEN /HPF (Neg); MUCUS STRANDS NONE SEEN /LPF (Neg); RBC,URINE 0-2 /HPF (0-2); SQUAMOUS EPITHELIAL CELL,UR FEW /LPF (FEW)
[2020-11-07 22:23] VITALS: BP 141/82
== END | disposition home or self-care (01) ==
LOC: ER 19:13
DX: R10.84 Generalized abdominal pain (principal); R11.2 Nausea with vomiting, unspecified; E11.9 Type 2 diabetes mellitus without complications; Z85.038 Personal history of other malignant neoplasm of large intestine; Z79.82 Long term (current) use of aspirin; Z79.899 Other long term (current) drug therapy
CPT/HCPCS: 36415; 74176; 80053; 81001; 84145; 85025; 96361; 96374; 96375; 99284; J2270; J2405; J7030

== ENCOUNTER 2020-11-26 16:42 | Emergency (ER) | payer BC ==
[~2020-11-26] VITALS: Ht 170.2 cm; Wt 54.5 kg
[~2020-11-26 16:42] MED LIST changes: -morphine 4 MG/ML inj SYRINge IV ONE; -normal saline 1000ml 1,000 ML IV ONE; -ondansetron/PF 4mg/2ml inj IV ONE
[2020-11-26 19:44] LABS: BASOPHILS # (AUTO) 0.2 X10'3 (0-0.2); BASOPHILS % (AUTO) 0.6 % (0-1); EOSINOPHILS % (AUTO) 0 % (0-6); HEMATOCRIT 31.3 % (42.0-52.0); HEMOGLOBIN 9.9 g/dl (14.0-17.9); LYMPHOCYTES # (AUTO) 0.9 X10'3 (1.1-4.8); LYMPHOCYTES % (AUTO) 3.3 % (21-51); MEAN CORPUSCULAR HEMOGLOBIN 29.2 PG (27.0-31.0); MEAN CORPUSCULAR HGB CONC 31.6 g/dL (33.0-36.5); MEAN CORPUSCULAR VOLUME 92.4 FL (78-98); MEAN PLATELET VOLUME 7.9 FL (7.4-10.4); MONOCYTES # (AUTO) 0.8 X10'3 (0-0.9); NEUTROPHILS # (AUTO) 25.1 X10'3 (1.8-7.7); NEUTROPHILS % (AUTO) 93.1 % (42-75); PLATELET COUNT 440 X10'3 (140-440); RED BLOOD COUNT 3.38 X10'6 (4.70-6.10); RED CELL DISTRIBUTION WIDTH 23.6 % (11.5-14.5)
[2020-11-26 19:46] LABS: ALANINE AMINOTRANSFERASE 23 U/L (12-78); ALBUMIN 2.9 G/DL (3.4-5.0); ALBUMIN/GLOBULIN RATIO 0.6 (1.1-1.5); ALKALINE PHOSPHATASE 426 IU/L (46-116); ANION GAP 12 (8-16); ASPARTATE AMINO TRANSFERASE 24 U/L (10-37); BILIRUBIN,TOTAL 0.7 MG/DL (0.1-1.0); BLOOD UREA NITROGEN 24 MG/DL (7-18); CALCIUM 9.2 MG/DL (8.5-10.1); CHLORIDE 93 MMOL/L (99-107); CREATININE 0.96 MG/DL (0.60-1.10); GLUCOSE 366 MG/DL (70-104); LIPASE 68 U/L (73-393); SODIUM 132 MMOL/L (135-145); TOTAL CARBON DIOXIDE 27.1 MMOL/L (24-32); TOTAL PROTEIN 7.9 G/DL (6.4-8.2); eGFR 80 ML/MIN
[2020-11-26] MEDS ORDERED: ondansetron/PF 4mg/2ml inj IV ONE (20:00)
[2020-11-26] MEDS ORDERED: normal saline 1000ml 1,000 ML IV ONE (20:00)
[2020-11-26 20:31] LABS: TROPONIN I < 0.04 NG/ML (0.0-0.05)
[2020-11-26 20:33] LABS: ANISOCYTOSIS 3+; PLATELET ESTIMATE INCREASED; TOTAL CELLS COUNTED 100
[2020-11-26 20:34] LABS: POLYCHROMASIA FEW
[2020-11-26] MEDS ORDERED: iohexol 350MG/ML 100ml bottle IV ONE (20:45)
[2020-11-26] MEDS ORDERED: [UNRECOGNIZED DRUG - REMARK] PO NR (21:00)
--- NOTE | 2020-11-26 21:08 | NUR ---
PT TO CT. PT HAS A PORTABLE CHEMO INFUSER WITH HIJM THAT IS RUNNING INTO HIS PORT A CATH ON THE RIGHT CHEST. PIV PLACED TO R ARM AND ZOFRAN GIVEN AND 1 LITER NS BOLUS INFUSING. PTS SISTER, CHING, AT [facility]. PT REPORTS HE HAS BEEN RECEIVING CHEMO FOR 6 MONTHS AND HE WILL BE STARTING RADIATION NEXT WEEK. PT HAS COLON CANCER WITH METS TO LIVER. CURRENT VSS. WBC 27.0, PA NACHO AWARE.
[2020-11-26 22:39] LABS: CLARITY,URINE SLIGHTLY CLOUDY (Clear); COLOR,URINE YELLOW (Yellow); GLUCOSE, URINE >=1000 mg/dl (Neg); KETONES,URINE 15 mg/dl (Neg); LEUKOCYTE ESTERASE ,URINE NEGATIVE (Neg); NITRITES, URINE NEGATIVE (Neg); OCCULT BLOOD,URINE TRACE-INTACT (Neg); PH,URINE 6.5 (4.8-8.0); PROTEIN,URINE 30 mg/dl (Neg); UROBILINOGEN,URINE 0.2 E.U/dL (0.2-1.0)
[2020-11-26 22:44] LABS: UA COLLECTION TYPE URINAL
[2020-11-26 22:47] LABS: BACTERIA,URINE FEW /HPF (Neg); RBC,URINE 0-2 /HPF (0-2); SQUAMOUS EPITHELIAL CELL,UR NONE SEEN /LPF (FEW); WBC,URINE 0-4 /HPF (0-4)
[2020-11-26] MEDS ORDERED: ONDA4TAB6 PO (22:51)
[2020-11-26 23:11] VITALS: BP 137/93
== END 2020-11-26 23:15 | disposition home or self-care (01) ==
LOC: ER 16:43
DX: R11.2 Nausea with vomiting, unspecified (principal); D72.829 Elevated white blood cell count, unspecified; R06.02 Shortness of breath; E11.9 Type 2 diabetes mellitus without complications; Z85.038 Personal history of other malignant neoplasm of large intestine; Z79.82 Long term (current) use of aspirin; Z79.84 Long term (current) use of oral hypoglycemic drugs; Z79.899 Other long term (current) drug therapy; Z92.21 Personal history of antineoplastic chemotherapy
CPT/HCPCS: 36415; 71045; 71275; 74177; 80053; 81001; 82948; 83605; 83690; 83880; 84145; 84484; 85007; 85025; 87040; 93005; 96361; 96374; 99285; J2405; J7030; Q9967

== ENCOUNTER 2020-12-11 14:52 | Emergency (ER) | payer BC ==
[~2020-12-11] VITALS: Ht 170.2 cm; Wt 49.1 kg
[2020-12-11 15:33] VITALS: BP 104/62
== END 2020-12-11 17:41 | disposition home or self-care (01) ==
LOC: ER 14:52
DX: M54.5 Low back pain (principal); G89.29 Other chronic pain; E11.9 Type 2 diabetes mellitus without complications; Z85.038 Personal history of other malignant neoplasm of large intestine; Z79.82 Long term (current) use of aspirin; Z79.899 Other long term (current) drug therapy
CPT/HCPCS: 99281

== ENCOUNTER 2021-03-08 05:43 | Inpatient (IN) | payer BC, MEDICAID ==
[~2021-03-08] VITALS: Ht 170.2 cm; Wt 61.8 kg
[2021-03-08] MEDS ORDERED: morphine 4 MG/ML inj SYRINge IV PRN (06:15)
[2021-03-08] MEDS ORDERED: normal saline 1000ML IV soln IVB ONE (06:15)
[2021-03-08] MEDS ORDERED: ondansetron/PF 4mg/2ml inj IV ONE ×2 (06:15→06:45)
[2021-03-08 06:30] LABS: BASOPHILS % (AUTO) 0.5 % (0-1); EOSINOPHILS # (AUTO) 0.1 X10'3 (0-0.9); EOSINOPHILS % (AUTO) 1.2 % (0-6); HEMATOCRIT 29.2 % (42.0-52.0); HEMOGLOBIN 9.5 g/dl (14.0-17.9); LYMPHOCYTES # (AUTO) 1.1 X10'3 (1.1-4.8); LYMPHOCYTES % (AUTO) 17.2 % (21-51); MEAN CORPUSCULAR HEMOGLOBIN 29.9 PG (27.0-31.0); MEAN CORPUSCULAR HGB CONC 32.3 g/dL (33.0-36.5); MEAN CORPUSCULAR VOLUME 92.6 FL (78-98); MEAN PLATELET VOLUME 6.8 FL (7.4-10.4); MONOCYTES # (AUTO) 0.5 X10'3 (0-0.9); MONOCYTES % (AUTO) 7.7 % (2-12); NEUTROPHILS # (AUTO) 4.8 X10'3 (1.8-7.7); NEUTROPHILS % (AUTO) 73.4 % (42-75); PLATELET COUNT 420 X10'3 (140-440); RED BLOOD COUNT 3.16 X10'6 (4.70-6.10); RED CELL DISTRIBUTION WIDTH 22.4 % (11.5-14.5); WHITE BLOOD COUNT 6.5 X10'3 (4.5-11.0)
[2021-03-08 06:33] LABS: ALANINE AMINOTRANSFERASE 55 U/L (12-78); ALBUMIN/GLOBULIN RATIO 0.6 (1.1-1.5); ALKALINE PHOSPHATASE 286 IU/L (46-116); ANION GAP 11 (8-16); ASPARTATE AMINO TRANSFERASE 45 U/L (10-37); BILIRUBIN,TOTAL 0.5 MG/DL (0.1-1.0); BLOOD UREA NITROGEN 31 MG/DL (7-18); BUN/CREATININE RATIO 27.7 (5.4-32.0); CALCIUM 9.2 MG/DL (8.5-10.1); CHLORIDE 98 MMOL/L (99-107); CREATININE 1.12 MG/DL (0.60-1.10); GLUCOSE 268 MG/DL (70-104); POTASSIUM 4.3 MMOL/L (3.5-5.1); SODIUM 134 MMOL/L (135-145); TOTAL CARBON DIOXIDE 25.2 MMOL/L (24-32); TOTAL PROTEIN 8.1 G/DL (6.4-8.2); eGFR 67 ML/MIN
[2021-03-08 06:37] LABS: LIPASE < 50 U/L (73-393); TROPONIN I < 0.04 NG/ML (0.0-0.05)
[2021-03-08 07:00] LABS: ANISOCYTOSIS 3+; PLATELET ESTIMATE NORMAL; POLYCHROMASIA FEW; ROULEAUX 1+
[2021-03-08] MEDS ORDERED: HYDROmorphone 1 mg/ml syringe IV ONE (07:50)
[2021-03-08] MEDS ORDERED: bisacodyl 10mg suppository rectal RC PRN (07:55)
[2021-03-08] MEDS ORDERED: potassium Cl 40MEQ/1/2NS 520ml 520 ML IV PRN ×2 (07:55)
[2021-03-08] MEDS ORDERED: magnesium hydroxide 30ml (MOM) UD suspension PO PRN (07:55)
[2021-03-08] MEDS ORDERED: HYDROcodone/acetaminophen 10/325mg tab PO PRN (07:55)
[2021-03-08] MEDS ORDERED: magnesium 2GM in 50ml NS 50 ML IV PRN (07:55)
[2021-03-08] MEDS ORDERED: ondansetron/PF 4mg/2ml inj IV PRN (07:55)
[2021-03-08] MEDS ORDERED: potassium Cl 20 mEq SR tablet PO PRN ×2 (07:55)
[2021-03-08] MEDS ORDERED: HYDROmorphone inj. 0.5 MG/0.5 ML DISP.SYRIN IV PRN (07:55)
[2021-03-08] MEDS ORDERED: acetaminophen 325mg tablet PO PRN ×2 (07:55)
[2021-03-08] MEDS ORDERED: mag hydrox/Alum hydrox/simeth 30ml oral suspension PO PRN (07:55)
[2021-03-08] MEDS ORDERED: magnesium Cl slow-release 64mg tablet PO PRN (07:55)
[2021-03-08] MEDS ORDERED: magnesium 4gm in 100ml NS 100 ML IV PRN (07:55)
[2021-03-08] MEDS: K and/or MAG REPLACEMENT MC SCH ×2 (08:00→20:00)
[2021-03-08] MEDS: normal saline 1000ml 1,000 ML IV SCH ×2 (08:18→17:55)
[2021-03-08] MEDS ORDERED: mineral oil 133ml enema RC PRN (09:05)
[2021-03-08] MEDS ORDERED: magnesium citrate 296ml oral solution PO ONE (09:05)
[2021-03-08 09:26] LABS: PARTIAL THROMBOPLASTIN TIME 40 SECONDS (22-32)
[2021-03-08] MEDS: docusate sod 100mg capsule PO SCH ×2 (10:04→20:33)
[2021-03-08] MEDS: metoprolol tartrate 12.5mg (1/2 tablet) PO SCH ×2 (10:04→20:33)
[2021-03-08 10:14] LABS: CLARITY,URINE CLEAR (Clear); COLOR,URINE STRAW (Yellow); GLUCOSE, URINE >=1000 mg/dl (Neg); KETONES,URINE NEGATIVE (Neg); LEUKOCYTE ESTERASE ,URINE NEGATIVE (Neg); NITRITES, URINE NEGATIVE (Neg); OCCULT BLOOD,URINE NEGATIVE (Neg); PROTEIN,URINE 30 mg/dl (Neg); UROBILINOGEN,URINE 0.2 E.U/dL (0.2-1.0)
[2021-03-08 10:15] LABS: UA COLLECTION TYPE URINAL
[2021-03-08 10:21] LABS: BACTERIA,URINE NONE SEEN /HPF (Neg); MUCUS STRANDS NONE SEEN /LPF (Neg); RBC,URINE NONE SEEN /HPF (0-2); SQUAMOUS EPITHELIAL CELL,UR NONE SEEN /LPF (FEW); WBC,URINE 0-4 /HPF (0-4)
[2021-03-08] MEDS ORDERED: METO-292 PO ×2 (10:52)
[2021-03-08] MEDS ORDERED: GLYB2.5T4 PO (10:52)
[2021-03-08] MEDS ORDERED: PIOG30TA71 PO (11:04)
--- NOTE | 2021-03-08 11:19 | NUR ---
Patient in room ED 1. I have received report from Bev CRESPO and had the opportunity to ask questions and assume patient care.
[2021-03-08] MEDS ORDERED: ZOLP5TAB8 PO (12:03)
[2021-03-08] MEDS ORDERED: OXYC-521 PO (12:03)
[2021-03-08] MEDS ORDERED: MORP15TA PO (12:03)
[2021-03-08] MEDS ORDERED: MEGE400O6 PO (12:03)
--- NOTE | 2021-03-08 12:51 | NUR ---
Page Sent promotional table spacer PAGER ID: [phone] MESSAGE: [id number] Job. Patient is diabetic and not on hypo/hyperglycemic protocol. Can I put him on it please. Lacy [phone]
[2021-03-08] MEDS ORDERED: glucagon, human recombinant 1mg kit SUBCUT PRN (12:55)
[2021-03-08] MEDS ORDERED: insulin Lispro (HumaLOG) vial - multi-dose SQ SCH (12:55)
[2021-03-08] MEDS ORDERED: metoclopramide 10mg tablet PO PRN (12:55)
[2021-03-08] MEDS ORDERED: polyethylene glycol 3350 17gm powd pack PO PRN (12:55)
[2021-03-08] MEDS ORDERED: dextrose 50%-water 50ml dispensing syringe IV PRN ×2 (12:55)
[2021-03-08] MEDS ORDERED: zolpidem 5mg tablet PO PRN (12:55)
[2021-03-08] MEDS ORDERED: non-formulary drug (Morphine Sulfate 1 TAB) PO PRN (12:55)
[2021-03-08] MEDS ORDERED: dextrose ORAL solution 15 GM/59 ML bottle PO PRN ×2 (12:55)
[2021-03-08] MEDS ORDERED: oxyCODONE IR 5mg (immed. release) tablet PO PRN (12:55)
[2021-03-08] MEDS ORDERED: MESSAGE TO PHARMACY PO ONE (12:55)
[2021-03-08 13:40] VITALS: BP 157/87
[2021-03-08] MEDS: megestrol acetate 400mg/10ml UD oral suspension PO SCH (14:06)
[2021-03-08 15:00] VITALS: BP 144/94
[2021-03-08 18:00] VITALS: BP 145/94
--- NOTE | 2021-03-08 18:19 | NUR ---
Problems reprioritized. Patient report given, questions answered & plan of care reviewed with Muriel CRESPO.
[2021-03-08] MEDS: HYDROcodone/acetaminophen 5mg/325mg tablet PO PRN (20:55)
[2021-03-08] MEDS ORDERED: polyethylene glycol 3350 17gm powd pack PO SCH (21:00)
[2021-03-08] MEDS ORDERED: temazepam 15mg capsule PO PRN (21:00)
[2021-03-08] MEDS ORDERED: insulin glargine (Lantus) pen - multi-dose SQ SCH (21:00)
[2021-03-08 22:00] VITALS: BP 162/93
[2021-03-09] MEDS ORDERED: methylnaltrexone br 12mg/0.6ml inj***SubQ only SQ PRN
[2021-03-09 02:00] VITALS: BP 154/89
[2021-03-09] MEDS: normal saline 1000ml 1,000 ML IV SCH (03:55)
--- NOTE | 2021-03-09 06:28 | NUR ---
Problems reprioritized. Patient report given, questions answered & plan of care reviewed with Kacy CRESPO.
--- NOTE | 2021-03-09 06:31 | NUR ---
Patient in room PCU 3027. I have received report from alexandrea CRESPO and had the opportunity to ask questions and assume patient care.
[2021-03-09 06:47] LABS: BASOPHILS % (AUTO) 0.9 % (0-1); EOSINOPHILS % (AUTO) 0.6 % (0-6); HEMOGLOBIN 8.1 g/dl (14.0-17.9); LYMPHOCYTES # (AUTO) 0.9 X10'3 (1.1-4.8); LYMPHOCYTES % (AUTO) 19.8 % (21-51); MEAN CORPUSCULAR HGB CONC 32.4 g/dL (33.0-36.5); MEAN CORPUSCULAR VOLUME 92.3 FL (78-98); MEAN PLATELET VOLUME 6.9 FL (7.4-10.4); MONOCYTES # (AUTO) 0.4 X10'3 (0-0.9); MONOCYTES % (AUTO) 9.7 % (2-12); NEUTROPHILS # (AUTO) 3.1 X10'3 (1.8-7.7); PLATELET COUNT 307 X10'3 (140-440); RED BLOOD COUNT 2.71 X10'6 (4.70-6.10); RED CELL DISTRIBUTION WIDTH 21.4 % (11.5-14.5); WHITE BLOOD COUNT 4.5 X10'3 (4.5-11.0)
--- NOTE | 2021-03-09 06:47 | NUR ---
Patient in room PCU 3027. I have received report from Shasha CRESPO and had the opportunity to ask questions and assume patient care.
[2021-03-09 07:00] VITALS: BP 149/91
[2021-03-09 07:10] LABS: ALANINE AMINOTRANSFERASE 37 U/L (12-78); ALBUMIN 2.5 G/DL (3.4-5.0); ALBUMIN/GLOBULIN RATIO 0.6 (1.1-1.5); ALKALINE PHOSPHATASE 239 IU/L (46-116); ANION GAP 8 (8-16); ASPARTATE AMINO TRANSFERASE 29 U/L (10-37); BILIRUBIN,TOTAL 0.5 MG/DL (0.1-1.0); BLOOD UREA NITROGEN 16 MG/DL (7-18); BUN/CREATININE RATIO 24.2 (5.4-32.0); CALCIUM 8.5 MG/DL (8.5-10.1); CHLORIDE 102 MMOL/L (99-107); CREATININE 0.66 MG/DL (0.60-1.10); GLUCOSE 90 MG/DL (70-104); MAGNESIUM 2.4 MG/DL (1.5-2.4); SODIUM 136 MMOL/L (135-145); TOTAL CARBON DIOXIDE 25.8 MMOL/L (24-32); eGFR > 90 ML/MIN
[2021-03-09] MEDS: megestrol acetate 400mg/10ml UD oral suspension PO SCH (07:55)
[2021-03-09] MEDS: docusate sod 100mg capsule PO SCH (07:55)
[2021-03-09] MEDS: metoprolol tartrate 12.5mg (1/2 tablet) PO SCH (07:56)
[2021-03-09] MEDS: HYDROcodone/acetaminophen 5mg/325mg tablet PO PRN (07:56)
[2021-03-09] MEDS: K and/or MAG REPLACEMENT MC SCH (08:00)
--- NOTE | 2021-03-09 09:25 | NUR ---
MD Campbell PAGER ID: [phone] MESSAGE: Carlos BHATTI ext [phone]. Pt [facility] room 3028B Bowel movements on NOC, can we advance diet as tolerated?
[2021-03-09 11:00] VITALS: BP 130/75
--- NOTE | 2021-03-09 11:08 | NUR ---
New verbal orders from Dr Campbell for carb controlled/heart healthy diet
[2021-03-09] MEDS ORDERED: LOP12.5T PO (11:25)
[2021-03-09] MEDS ORDERED: DOCU100C40 PO (11:25)
[2021-03-09] MEDS ORDERED: POLY17PO10 PO (11:25)
--- NOTE | 2021-03-09 12:32 | NUR ---
Patient is stable for discharge per MD orders. All discharge instructions reviewed with patient and all qquestions answered. New prescriptions called into pharmac or sent electronically. PIV discontinued telemetry monitoring discontinued. loom technician notified. belongings collected and sent with patient. Pt wheeled to lobby and left with family member.
--- NOTE | 2021-03-09 12:38 | NUR ---
[place] documentation: I have reviewed and agree with all interventions, assessments performed and documented by Carlos RN. [place] Medication Administration: For this medication-pass time frame, all medication were reviewed, dispensed, administered and documented per hospital policy by Carlos RN.
== END 2021-03-09 12:25 | disposition home or self-care (01) | DRG 247 ==
LOC: ER 05:43 → ED HOLD 07:55 → UNDOADMIN 07:55 → EDBEDREQTM 10:19 → EDBEDREQSVC 10:19 → EDBEDREQ 10:19 → ED HOLD 10:23 → PCU 3S 12:30 → ED HOLD 12:30
PROVIDERS: ADMIT Family Medicine; ATTEND Family Medicine
DX: K56.7 Ileus, unspecified (principal); N17.9 Acute kidney failure, unspecified; C78.7 Secondary malignant neoplasm of liver and intrahepatic bile duct; E11.22 Type 2 diabetes mellitus with diabetic chronic kidney disease; E11.65 Type 2 diabetes mellitus with hyperglycemia; E87.1 Hypo-osmolality and hyponatremia; D63.8 Anemia in other chronic diseases classified elsewhere; C18.9 Malignant neoplasm of colon, unspecified; E78.5 Hyperlipidemia, unspecified; G89.29 Other chronic pain; I12.9 Hypertensive chronic kidney disease with stage 1 through stage 4 chronic kidney disease, or unspecified chronic kidney disease; N18.9 Chronic kidney disease, unspecified; M54.9 Dorsalgia, unspecified; K59.03 Drug induced constipation; T40.2X5A Adverse effect of other opioids, initial encounter; R00.0 Tachycardia, unspecified; R74.01 Elevation of levels of liver transaminase levels; Z90.49 Acquired absence of other specified parts of digestive tract; Z92.21 Personal history of antineoplastic chemotherapy; Z93.3 Colostomy status; Y92.89 Other specified places as the place of occurrence of the external cause
CPT/HCPCS: 36415; 71045; 74018; 74176; 80053; 81001; 82948; 83036; 83690; 83735; 84484; 85008; 85025; 85610; 85730; 87081; 93005; 96374; 99285; G0378; J1170; J1815; J2270; J2405; J7030

== ENCOUNTER 2021-05-19 09:44 | Inpatient (IN) | payer MEDICAID ==
[~2021-05-19] VITALS: Ht 170.2 cm; Wt 71.7 kg
[~2021-05-19 09:44] MED LIST changes: -AMLO10TA13 PO; -ASPI-612 PO; +DOCU100C40 PO; +GLYB2.5T4 PO; +LOP12.5T PO; -MAGN400C PO; +MEGE400O6 PO; +METO-292 PO; +MORP15TA PO; -MULT-227 PO; -OMEG-133 PO; -ONDA4TAB6 PO; +OXYC-521 PO; -PIOG15TA70 PO; +PIOG30TA71 PO; +ZOLP5TAB8 PO
--- NOTE | 2021-05-19 13:50 | NUR ---
MANUFACTURING TECHNOLOGY ANALYST AT BEDSIDE.
[2021-05-19 14:04] LABS: BASOPHILS % (AUTO) 0.5 % (0-1); EOSINOPHILS # (AUTO) 0.1 X10'3 (0-0.9); LYMPHOCYTES # (AUTO) 1.2 X10'3 (1.1-4.8); LYMPHOCYTES % (AUTO) 14.3 % (21-51); MEAN CORPUSCULAR HEMOGLOBIN 27.1 PG (27.0-31.0); MEAN CORPUSCULAR HGB CONC 31.1 g/dL (33.0-36.5); MEAN PLATELET VOLUME 8.1 FL (7.4-10.4); MONOCYTES # (AUTO) 1.1 X10'3 (0-0.9); MONOCYTES % (AUTO) 13.1 % (2-12); NEUTROPHILS % (AUTO) 71.1 % (42-75); PLATELET COUNT 232 X10'3 (140-440); RED BLOOD COUNT 2.43 X10'6 (4.70-6.10); RED CELL DISTRIBUTION WIDTH 23.5 % (11.5-14.5); WHITE BLOOD COUNT 8.5 X10'3 (4.5-11.0)
[2021-05-19 14:05] LABS: HEMATOCRIT 21.2 % (42.0-52.0); HEMOGLOBIN 6.6 g/dl (14.0-17.9)
[2021-05-19 14:14] LABS: CLARITY,URINE CLEAR (Clear); COLOR,URINE DARK YELLOW (Yellow); UA COLLECTION TYPE VOIDED
[2021-05-19 14:15] LABS: GLUCOSE, URINE NEGATIVE (Neg); KETONES,URINE NEGATIVE (Neg); LEUKOCYTE ESTERASE ,URINE NEGATIVE (Neg); NITRITES, URINE NEGATIVE (Neg); OCCULT BLOOD,URINE NEGATIVE (Neg); PROTEIN,URINE 100 mg/dl (Neg); UROBILINOGEN,URINE 0.2 E.U/dL (0.2-1.0)
[2021-05-19 14:17] LABS: ALANINE AMINOTRANSFERASE 27 U/L (12-78); ALBUMIN 1.8 G/DL (3.4-5.0); ALBUMIN/GLOBULIN RATIO 0.4 (1.1-1.5); ALKALINE PHOSPHATASE 610 IU/L (46-116); ANION GAP 10 (8-16); ASPARTATE AMINO TRANSFERASE 41 U/L (10-37); BLOOD UREA NITROGEN 20 MG/DL (7-18); BUN/CREATININE RATIO 21.3 (5.4-32.0); CALCIUM 8.9 MG/DL (8.5-10.1); CHLORIDE 103 MMOL/L (99-107); CREATININE 0.94 MG/DL (0.60-1.10); GLUCOSE 147 MG/DL (70-104); POTASSIUM 4.7 MMOL/L (3.5-5.1); SODIUM 136 MMOL/L (135-145); TOTAL PROTEIN 6.6 G/DL (6.4-8.2); eGFR 82 ML/MIN
[2021-05-19 14:23] LABS: BACTERIA,URINE NONE SEEN /HPF (Neg); MUCUS STRANDS NONE SEEN /LPF (Neg); RBC,URINE NONE SEEN /HPF (0-2); RENAL CELLS, URINE FEW /HPF; SQUAMOUS EPITHELIAL CELL,UR NONE SEEN /LPF (FEW); WBC,URINE NONE SEEN /HPF (0-4)
[2021-05-19 14:26] LABS: LIPASE < 50 U/L (73-393)
[2021-05-19 15:49] LABS: OCCULT BLOOD STOOL NEGATIVE (Neg)
[2021-05-19] MEDS ORDERED: MORP-92 PO (16:41)
[2021-05-19] MEDS ORDERED: METO50TA17 PO (16:41)
[2021-05-19 16:44] VITALS: BP 153/88
[2021-05-19 16:45] VITALS: BP 153/88
[2021-05-19 17:02] VITALS: BP 149/90
--- NOTE | 2021-05-19 17:12 | NUR ---
AUTOMOTIVE PARTS COUNTERPERSON AT BEDSIDE.
[2021-05-19 18:02] VITALS: BP 141/95
[2021-05-19] MEDS ORDERED: glucagon, human recombinant 1mg kit SUBCUT PRN (18:25)
[2021-05-19] MEDS ORDERED: potassium Cl 20 mEq SR tablet PO PRN ×2 (18:25)
[2021-05-19] MEDS ORDERED: potassium Cl 40MEQ/1/2NS 520ml 520 ML IV PRN ×2 (18:25)
[2021-05-19] MEDS ORDERED: insulin Lispro (HumaLOG) vial - multi-dose SQ SCH (18:25)
[2021-05-19] MEDS ORDERED: HYDROcodone/acetaminophen 10/325mg tab PO PRN (18:25)
[2021-05-19] MEDS ORDERED: morphine 2 MG/ML inj. syringe IV PRN ×2 (18:25)
[2021-05-19] MEDS ORDERED: magnesium 4gm in 100ml NS 100 ML IV PRN (18:25)
[2021-05-19] MEDS ORDERED: normal saline 1000ml 1,000 ML IV SCH (18:25)
[2021-05-19] MEDS ORDERED: MESSAGE TO PHARMACY PO ONE (18:25)
[2021-05-19] MEDS ORDERED: bisacodyl 10mg suppository rectal RC PRN (18:25)
[2021-05-19] MEDS ORDERED: acetaminophen 650mg rectal suppository RC PRN (18:25)
[2021-05-19] MEDS ORDERED: magnesium 2GM in 50ml NS 50 ML IV PRN (18:25)
[2021-05-19] MEDS ORDERED: magnesium Cl slow-release 64mg tablet PO PRN (18:25)
[2021-05-19] MEDS ORDERED: HYDROcodone/acetaminophen 5mg/325mg tablet PO PRN (18:25)
[2021-05-19] MEDS ORDERED: ondansetron/PF 4mg/2ml inj IV PRN (18:25)
[2021-05-19] MEDS ORDERED: diphenhydrAMINE 25mg capsule PO PRN (18:25)
[2021-05-19] MEDS ORDERED: magnesium hydroxide 30ml (MOM) UD suspension PO PRN (18:25)
[2021-05-19] MEDS ORDERED: mag hydrox/Alum hydrox/simeth 30ml oral suspension PO PRN (18:25)
[2021-05-19] MEDS ORDERED: dextrose ORAL solution 15 GM/59 ML bottle PO PRN ×2 (18:25)
[2021-05-19] MEDS ORDERED: acetaminophen 325mg tablet PO PRN ×2 (18:25)
[2021-05-19] MEDS ORDERED: dextrose 50%-water 50ml dispensing syringe IV PRN ×2 (18:25)
[2021-05-19 19:04] VITALS: BP 153/89
[2021-05-19 19:20] LABS: HEMOGLOBIN A1C 7.4 % (4.5-6.2)
--- NOTE | 2021-05-19 19:45 | NUR ---
PT is AOx4 and in NAD upon intial assessment; pt VSS and is on RA with blood transfusing. Pt is at bedside. No change in pt condition at this time. Pt in NSR with equal clear lung sounds and abdomen is slightly distended with hx of CO CA. Bowel sounds present with last BM today. Pt needs another unit of blood and cbc recheck after. Will CTM and reassess frequently. Pt is on the monitor and has call light in hand. Provided blanket for comfort and BSC.
[2021-05-19] MEDS: K and/or MAG REPLACEMENT MC SCH (20:20)
[2021-05-19] MEDS: docusate sod 100mg capsule PO SCH (20:39)
[2021-05-19] MEDS ORDERED: insulin glargine (Lantus) pen - multi-dose SQ SCH (21:00)
[2021-05-19 22:00] VITALS: BP 149/69
[2021-05-19 23:48] LABS: HEMATOCRIT 32.4 % (42.0-52.0); HEMOGLOBIN 10.5 g/dl (14.0-17.9); MEAN CORPUSCULAR HEMOGLOBIN 27.8 PG (27.0-31.0); MEAN CORPUSCULAR HGB CONC 32.4 g/dL (33.0-36.5); MEAN CORPUSCULAR VOLUME 85.8 FL (78-98); MEAN PLATELET VOLUME 7.9 FL (7.4-10.4); PLATELET COUNT 238 X10'3 (140-440); RED BLOOD COUNT 3.78 X10'6 (4.70-6.10); RED CELL DISTRIBUTION WIDTH 19.4 % (11.5-14.5); WHITE BLOOD COUNT 9.4 X10'3 (4.5-11.0)
[2021-05-20 03:06] LABS: BASOPHILS # (AUTO) 0.1 X10'3 (0-0.2); BASOPHILS % (AUTO) 1.1 % (0-1); EOSINOPHILS # (AUTO) 0.1 X10'3 (0-0.9); EOSINOPHILS % (AUTO) 1.1 % (0-6); HEMATOCRIT 29.5 % (42.0-52.0); HEMOGLOBIN 9.6 g/dl (14.0-17.9); LYMPHOCYTES # (AUTO) 0.7 X10'3 (1.1-4.8); LYMPHOCYTES % (AUTO) 10.6 % (21-51); MEAN CORPUSCULAR HEMOGLOBIN 27.8 PG (27.0-31.0); MEAN CORPUSCULAR HGB CONC 32.4 g/dL (33.0-36.5); MEAN CORPUSCULAR VOLUME 85.9 FL (78-98); MEAN PLATELET VOLUME 8.1 FL (7.4-10.4); MONOCYTES # (AUTO) 0.9 X10'3 (0-0.9); MONOCYTES % (AUTO) 13.6 % (2-12); NEUTROPHILS % (AUTO) 73.6 % (42-75); PLATELET COUNT 195 X10'3 (140-440); RED BLOOD COUNT 3.44 X10'6 (4.70-6.10); RED CELL DISTRIBUTION WIDTH 19.7 % (11.5-14.5); WHITE BLOOD COUNT 6.9 X10'3 (4.5-11.0)
--- NOTE | 2021-05-20 03:06 | NUR ---
Pt finally able to produce BM. Pt pain immediately was relieved; abd distention improvement; at bedside; pt able to rest; VSS; will CTM; BM was hard and dark brown but not black; no blood present in stool
[2021-05-20 03:24] LABS: ALANINE AMINOTRANSFERASE 31 U/L (12-78); ALBUMIN 1.8 G/DL (3.4-5.0); ALBUMIN/GLOBULIN RATIO 0.4 (1.1-1.5); ALKALINE PHOSPHATASE 582 IU/L (46-116); ANION GAP 12 (8-16); ASPARTATE AMINO TRANSFERASE 41 U/L (10-37); BILIRUBIN,TOTAL 1.7 MG/DL (0.1-1.0); BLOOD UREA NITROGEN 17 MG/DL (7-18); BUN/CREATININE RATIO 19.8 (5.4-32.0); CALCIUM 8.7 MG/DL (8.5-10.1); CHLORIDE 100 MMOL/L (99-107); CREATININE 0.86 MG/DL (0.60-1.10); GLUCOSE 182 MG/DL (70-104); PHOSPHORUS 3.2 MG/DL (2.3-4.5); POTASSIUM 4.2 MMOL/L (3.5-5.1); SODIUM 134 MMOL/L (135-145); TOTAL CARBON DIOXIDE 22.4 MMOL/L (24-32); TOTAL PROTEIN 6.4 G/DL (6.4-8.2); eGFR 90 ML/MIN
[2021-05-20 04:19] LABS: ANISOCYTOSIS 2+; PLATELET ESTIMATE NORMAL
--- NOTE | 2021-05-20 06:20 | NUR ---
Report given to aiden CRESPO
[2021-05-20] MEDS: K and/or MAG REPLACEMENT MC SCH (06:29)
--- NOTE | 2021-05-20 07:02 | NUR ---
Report received from DICE MANAGERZAK Liu. She states she will check BG before bringing pt. up on [facility].
[2021-05-20] MEDS: docusate sod 100mg capsule PO SCH (08:00)
[2021-05-20 08:08] VITALS: BP 154/92
[2021-05-20 09:03] LABS: HEMATOCRIT 28.8 % (42.0-52.0); HEMOGLOBIN 9.6 g/dl (14.0-17.9); MEAN CORPUSCULAR HGB CONC 33.2 g/dL (33.0-36.5); MEAN CORPUSCULAR VOLUME 84.5 FL (78-98); MEAN PLATELET VOLUME 7.7 FL (7.4-10.4); PLATELET COUNT 189 X10'3 (140-440); RED BLOOD COUNT 3.41 X10'6 (4.70-6.10); RED CELL DISTRIBUTION WIDTH 20.2 % (11.5-14.5); WHITE BLOOD COUNT 6.3 X10'3 (4.5-11.0)
[2021-05-20 11:00] VITALS: BP 149/101
--- NOTE | 2021-05-20 11:01 | NUR ---
Discharge noted. Pt. unable to leave until he gets a paracentesis. [facility] called. Nurse states they are in the middle of case but will address when done. Pt. currently receiving DM diet education from nutrition. at bedside.
--- NOTE | 2021-05-20 11:24 | NUR ---
PAGER ID: [phone] MESSAGE: Clay Song [phone] Per IR/angio they can not do paracentesis without documented H&P. Also they were under the impression that it should be done OP. Please clarify your wishes before DC. Fidelina [phone]
--- NOTE | 2021-05-20 11:27 | NUR ---
Diabetes Consult: Pt noted to be diabetic, A1C 7.4 Provided Pt and his sister w/ written and verbal diabetes education w/ RD contact info. Pt receptive of information. Will continue to monitor. Addendum: 05/20/21 at [address] Amended: Links added.
--- NOTE | 2021-05-20 11:45 | NUR ---
Dr. Duarte called states he discussed case with Markel in IR. Pt. may do paracentesis OP if arranged for pt and within the next couple of days. Otherwise pt. should get procedure today but later in afternoon. Will await call from [facility] with plan before discharge.
--- NOTE | 2021-05-20 12:24 | NUR ---
PAGER ID: [phone] MESSAGE: Clay Song [id number] tachycardic 126 HR at rest. Has been tachycardic - sustaining. Fidelina [phone]
--- NOTE | 2021-05-20 12:50 | NUR ---
Called [facility]. According to Dylan- the plan is still to do a paracentesis today.
--- NOTE | 2021-05-20 12:53 | NUR ---
PAGER ID: [phone] MESSAGE: Velia Bhatia is very concern that the med req has not been addressed yet. Beta femi may help with HR? Can you check it please? plan is to stay at the moment at wait for para. Fidelina [phone]
[2021-05-20] MEDS ORDERED: polyethylene glycol 3350 17gm powd pack PO PRN (13:00)
[2021-05-20] MEDS ORDERED: zolpidem 5mg tablet PO PRN (13:00)
[2021-05-20] MEDS ORDERED: oxyCODONE IR 5mg (immed. release) tablet PO PRN (13:00)
[2021-05-20] MEDS ORDERED: metoprolol tartrate 50mg tablet PO ONE (13:05)
[2021-05-20] MEDS ORDERED: lisinopril 20mg tablet PO ONE (13:05)
--- NOTE | 2021-05-20 14:22 | NUR ---
MD scanned patient with US in room, intervention was not indicated at this time. Report was given to both primary RN Fidelina and LIAT Tobar that there was no indication for intervention and no need for any further IR services at this time.
--- NOTE | 2021-05-20 14:44 | NUR ---
Pt's AT=420/99, SU=010, RR=16, O2 98% RA. Metropolol and Lisinopril admin per order. ZAK Kitchen notified.
[2021-05-20 15:23] LABS: HEMATOCRIT 30.7 % (42.0-52.0); HEMOGLOBIN 9.8 g/dl (14.0-17.9); MEAN CORPUSCULAR HEMOGLOBIN 27.5 PG (27.0-31.0); MEAN CORPUSCULAR VOLUME 86.1 FL (78-98); PLATELET COUNT 226 X10'3 (140-440); RED BLOOD COUNT 3.56 X10'6 (4.70-6.10); RED CELL DISTRIBUTION WIDTH 20.1 % (11.5-14.5); WHITE BLOOD COUNT 7.3 X10'3 (4.5-11.0)
[2021-05-20 16:30] VITALS: BP 159/99
--- NOTE | 2021-05-20 16:32 | NUR ---
Per conveyor line battery charger, Dr. Duarte is aware no paracentesis was performed today, but that he still wants pt. discharged. Will follow through with discharge.
[2021-05-20] MEDS ORDERED: morphine ER 15mg tablet PO SCH (20:00)
[2021-05-20] MEDS ORDERED: metoprolol tartrate 50mg tablet PO SCH (20:00)
[2021-05-20] MEDS ORDERED: atorvastatin 10mg tablet PO SCH (21:00)
[2021-05-21] MEDS ORDERED: lisinopril 20mg tablet PO SCH (08:00)
[2021-05-21] MEDS ORDERED: megestrol acetate 400mg/10ml UD oral suspension PO SCH (08:00)
== END 2021-05-20 17:15 | disposition home or self-care (01) | DRG 663 ==
LOC: ER 09:45 → ED HOLD 18:21 → OBSVTOIN 18:21 → UNDOADMOB 18:21 → INTOOBSV 18:21 → ED HOLD 05-20 07:15 → SUR 3N 05-20 07:15 → UNDODISIN 05-20 17:15
PROVIDERS: ADMIT Family Medicine; ATTEND Family Medicine
PROC: 30233N1 Transfusion of Nonautologous Red Blood Cells into Peripheral Vein, Percutaneous Approach (ICD-10-PCS; principal; 2021-05-19)
DX: D64.9 Anemia, unspecified (principal); R18.8 Other ascites; C18.9 Malignant neoplasm of colon, unspecified; C78.7 Secondary malignant neoplasm of liver and intrahepatic bile duct; E11.9 Type 2 diabetes mellitus without complications; E78.00 Pure hypercholesterolemia, unspecified; G89.29 Other chronic pain; M54.9 Dorsalgia, unspecified; E78.5 Hyperlipidemia, unspecified; F32.9 Major depressive disorder, single episode, unspecified; F41.9 Anxiety disorder, unspecified; I10 Essential (primary) hypertension; Z66 Do not resuscitate; Z79.899 Other long term (current) drug therapy; Z83.3 Family history of diabetes mellitus
CPT/HCPCS: 36415; 36430; 71045; 76705; 80053; 81001; 82272; 82948; 83036; 83690; 83735; 83880; 84100; 85008; 85025; 85027; 86644; 86885; 86900; 86901; 86920; 86945; 93005; 93970; 99285; G0378; J1815; J2270; J7030; P9016